=== PATIENT | male | born 1950 | race Caucasian/White ===

== ENCOUNTER 2024-03-15 11:44 | Emergency (ER) | payer MEDICARE ==
[~2024-03-15] VITALS: Ht 177.8 cm; Wt 78.0 kg
[~2024-03-15 11:44] MED LIST: ASPIRIN CHEWABL81 M1 PO; IBU PO; PRILOSEC20 MG PO
[2024-03-15] MEDS ORDERED: CEPHALEXIN500 M1 PO (12:38)
== END 2024-03-15 12:41 | disposition home or self-care (01) ==
LOC: ED 11:44
DX: L03.116 Cellulitis of left lower limb (principal); Z79.899 Other long term (current) drug therapy; Z79.82 Long term (current) use of aspirin

== ENCOUNTER 2024-06-21 09:16 | Emergency (ER) | payer MEDICARE ==
[~2024-06-21] VITALS: Ht 177.8 cm; Wt 77.1 kg
[~2024-06-21 09:16] MED LIST changes: +CEPHALEXIN500 M1 PO
[2024-06-21] MEDS ORDERED: NEO-SYNEPHRINE1516 NAS (10:33)
[2024-06-21] MEDS ORDERED: TRAMADOL HCL50 MG PO (11:59)
== END 2024-06-21 10:36 | disposition home or self-care (01) ==
LOC: ED 09:16
DX: R04.0 Epistaxis (principal)

== ENCOUNTER 2024-06-21 11:42 | Emergency (ER) | payer MEDICARE ==
[~2024-06-21] VITALS: Wt 77.1 kg
[~2024-06-21 11:42] MED LIST changes: +NEO-SYNEPHRINE1516 NAS
[2024-06-21] MEDS ORDERED: TRAMADOL HCL50 MG PO (11:59)
== END 2024-06-21 12:03 | disposition home or self-care (01) ==
LOC: ED 11:42
DX: R04.0 Epistaxis (principal)

== ENCOUNTER 2024-06-23 12:26 | Emergency (ER) | payer MEDICARE ==
[~2024-06-23] VITALS: Wt 77.1 kg
[~2024-06-23 12:26] MED LIST changes: +TRAMADOL HCL50 MG PO
== END 2024-06-23 14:10 | disposition home or self-care (01) ==
LOC: ED 12:26
DX: R04.0 Epistaxis (principal); Z44.8 Encounter for fitting and adjustment of other external prosthetic devices